=== PATIENT | female | born 1975 | race Caucasian/White ===

== ENCOUNTER → 2019-06-23 | Outpatient (CLI) | payer BC, OTHER ==
--- NOTE | 2019-06-23 10:59 | 2DMMODE ---
[facility] [address] [place] [address] 2 D/M-MODE ECHOCARDIOGRAM Name: SERAFIN NESS Room #: REG [facility]#: [id number] Admission: 06/23/19 Attend Phys: Grant Glynn, Discharge: Date of : 75 Report #: [id number] THIS REPORT FOR: //name// APPROVED REPORT Study performed: 06/23/2019 09:08:25 EXAM: Comprehensive 2D, Doppler, and color-flow Echocardiogram Patient Location: Out-Patient Status: routine BSA: 2.17 HR: 82 bpm BP: 118/82 mmHg Rhythm: NSR Other Information Study Quality: Fair Indications Intractable chronic migrane Echo Enhancing Agent Indication: Rule Out Septal Defect Agent(s) / Amount(s) Used: Agitated Saline 7 cc 2D Dimensions RVDd: 41.28 mm IVSd: 11.34 (7-11mm) LVOT Diam: 20.88 (18-24mm) LVDd: 43.53 mm PWd: 12.29 (7-11mm) Ascending Ao: 34.65 (22-36mm) LVDs: 27.44 (25-40mm) Aortic Root: 36.40 mm IVC: 21.00 mm Volumes Left Atrial Volume (Systole) Single Plane 4CH: 23.75 mL Single Plane 2CH: 43.74 mL LA ESV Index: 16.00 mL/m2 Aortic Valve AoV Peak Prasad.: 0.71 m/s AO Peak Gr.: 2.02 mmHg LVOT Max P.10 mmHg LVOT Max V: 0.72 m/s ELIZABETH Vmax: 3.48 cm2 [facility] [address] [place] [address] 2 D/M-MODE ECHOCARDIOGRAM Name: SERAFIN NESS [id number] Admission: 06/23/19 Attend Phys: Grant Glynn, Discharge: Date of : 75 Report #: [id number] Mitral Valve E/A Ratio: 0.8 MV Decel. Time: 297.89 ms MV E Max Prasad.: 0.39 m/s MV A Prasad.: 0.50 m/s MV PHT: 86.39 ms IVRT: 96.89 ms Pulmonary Valve PV Peak Prasad.: 0.74 m/s PV Peak Gr.: 2.19 mmHg Pulmonary Vein P Vein S: 0.44 m/s P Vein A: 0.31 m/s P Vein D: 0.32 m/s P Vein A Dur.: 92.3 msec P Vein S/D Ratio: 1.38 Tricuspid Valve TR Peak Prasad.: 2.30 m/s RAP Estimate: 5.00 mmHg TR Peak Gr.: 21.25 mmHg PA Pressure: 26.00 mmHg Left Ventricle The left ventricle is normal size. There is normal left ventricular wall thickness. The left ventricular systolic function is normal. The left ventricular ejection fraction is within the normal range. LVEF is 55-60%. Mild diastolic dysfunction is present (impaired relaxation pattern). Right Ventricle Right ventricle is at the upper limits of normal. The right ventricular systolic function is normal. Atria The left atrium size is normal. No shunting noted by contrast bubble injection. The right atrium size is normal. Aortic Valve The aortic valve is normal in structure. No aortic regurgitation is present. There is no aortic valvular stenosis. Mitral Valve The mitral valve is normal in structure. Trace to mild mitral regurgitation. No evidence of mitral valve stenosis. Tricuspid Valve The tricuspid valve is normal in structure. Mild tricuspid [address] [address] 2 D/M-MODE ECHOCARDIOGRAM Name: JANUARYSERAFIN Room #: REG [facility]#: [id number] Admission: 06/23/19 Attend Phys: Grant Glynn, Discharge: Date of : 75 Report #: [id number] regurgitation. Estimated PAP is 26mmHg. Pulmonic Valve The pulmonary valve is normal in structure. Trace pulmonic regurgitation. Great Vessels The aortic root is normal in size. The ascending aorta is normal in size. IVC is normal in size and collapses >50% with inspiration. Pericardium There is no pericardial effusion. <Conclusion> The left ventricle is normal size. LVEF is 55-60%. No shunting noted by contrast bubble injection. The aortic valve is normal in structure. The mitral valve is normal in structure. Trace to mild mitral regurgitation. The tricuspid valve is normal in structure. Mild tricuspid regurgitation. Estimated PAP is 26mmHg. The pulmonary valve is normal in structure. Trace pulmonic regurgitation. The pulmonary valve is normal in structure. Trace pulmonic regurgitation. There is no pericardial effusion. <ELECTRONICALLY SIGNED> By: Brian Ruggiero MD 06/23/19 1059 [id number] [id number] Brian Ruggiero MD /INF
== END ==
LOC: CV 08:56
DX: I08.1 Rheumatic disorders of both mitral and tricuspid valves (principal); G43.719 Chronic migraine without aura, intractable, without status migrainosus; G47.411 Narcolepsy with cataplexy; I49.8 Other specified cardiac arrhythmias; Z88.8 Allergy status to other drugs, medicaments and biological substances; Z88.0 Allergy status to penicillin

== ENCOUNTER → 2019-11-04 | Outpatient (CLI) | payer BC, OTHER ==
--- NOTE | 2019-11-08 18:40 | SLE ---
[facility] [place] [address] POLYSOMNOGRAPHY STUDY Name: SERAFIN NESS Room #: REG [facility]#: [id number] Admission: 11/04/19 Attend Phys: Bryce Flores MD Discharge: Date of : 75 Report #: [id number] THIS REPORT FOR: //name// CC: Bryce Glynn MD DATE OF SERVICE: 11/04/2019 SLEEP STUDY REFERRING PHYSICIAN: Dr. Grant Glynn. The patient is 43 years old who weighs 226 pounds with a BMI of 34.4. The patient's Bell[place] score is 15. The patient underwent a diagnostic sleep study performed at [facility]. During the night study, the patient spent 400 minutes in bed and slept for 272 minutes with a sleep efficiency of 68%. Sleep latency was prolonged at 119 minutes with a REM latency of 120 minutes. Sleep architecture showed normal stage 1 sleep, increased stage 2 sleep, increased slow wave and reduced REM sleep. During the night study, the patient had 2 obstructive apneas, 1 central apnea, no mixed apneas and 15 hypopneas. The patient's apnea hypopnea index was 4 per hour with a REM index of 11.6 per hour and a supine index of 4 per hour. EKG monitoring revealed a mean oxygen saturation of 73%. No sustained arrhythmias observed. No clinically significant PLM seen. Nocturnal oximetry study revealed no clinically significant nocturnal hypoxia. The patient's average oxygen saturation was 95% with the lowest of 88%. Due to low AHI, the patient did not meet the split night criteria for CPAP initiation. IMPRESSION: 1. No clinically significant sleep disorder breathing. The patient's AHI for the entire night was 4 per hour. 2. No clinically significant nocturnal hypoxia. 3. No clinically significant periodic limb movements. 4. 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 [facility] [address] [place] [address] POLYSOMNOGRAPHY STUDY Name: SERAFIN NESS Room #: REG [facility]#: [id number] Admission: 11/04/19 Attend Phys: Bryce Flores MD Discharge: Date of : 75 Report #: [id number] RECOMMENDATIONS: 1. The patient did not meet the split night criteria for CPAP initiation due to very low AHI. 2. The patient is clinically symptomatic with an Bell[place] score of 15. If clinical suspicion for other disorders such as narcolepsy or idiopathic hypersomnia is high, then consider doing multiple sleep latency tests. 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 3. Avoid [employer] depressants. They can also contribute to patients hypersomnia. 4. Cautioned regarding driving until patients hypersomnia is resolved with the above recommendation. 5. Weight loss to the ideal body weight is recommended. <ELECTRONICALLY SIGNED> By: Bryce Flores MD 11/08/19 [id number] MD nahomy Ribeiro
== END ==
LOC: SLEEPLAB 15:36
DX: G47.9 Sleep disorder, unspecified (principal)